=== PATIENT | male | born 1945 ===

== ENCOUNTER 2022-09-05 08:55 | Outpatient (CLI) | payer OTHER ==
[~2022-09-05 08:55] MED LIST: AVELOX ABC PAC400 MG; HYZAAR 50/12.51 TAB; METOPROLOL SUCC50 MG; SIMVASTATIN10 MG; TRAMADOL HCL-AP1 TAB
== END 2022-09-05 09:03 | disposition home or self-care (01) ==
LOC: RX STUDY 08:55
DX: R13.10 Dysphagia, unspecified (principal)

== ENCOUNTER 2022-09-17 11:06 | Outpatient (CLI) | payer OTHER | END 2022-09-17 11:11 | disposition home or self-care (01) | LOC: TOM 11:06 | DX: R63.4 Abnormal weight loss (principal) | CPT/HCPCS: 74178; Q9965 ==